=== PATIENT | male | born 1945 | race African-American/Black ===

== ENCOUNTER 2017-06-26 11:51 | Inpatient (IN) | payer MEDICARE, MEDICAID ==
--- NOTE | 2017-06-26 12:06 | ED Physician Chart ---
ED Chief Complaint/HPI - Patient Information Date Seen:: 06/26/17 Time Seen:: 11:50 Chief Complaint:: Failure to Thrive History of Present Illness:: onset x 3 days of failure to thrive and poor oral intake; no report of trauma, H /As, S/T, neck pain, C/P, SOB, Abd. Pain, A/N/V/D/C, fever, chills, or urinary s /s Allergies:: Allergies Allergy/AdvReac Type Severity Reaction Status Date / Time No Known Allergies Allergy Verified 06/26/17 11:55 Historian:: Patient, Family Member Review:: Nurse's Note Reviewed ED Review of Systems - Review of Systems General/Constitutional: No fever, No chills, No weight loss, No weakness, No diaphoresis, No edema, No loss of appetite Skin: No skin lesions, No rash, No bruising Head: No headache, No light-headedness Eyes: No loss of vision, No pain, No diplopia ENT: No earache, No nasal drainage, No sore throat, No tinnitus Neck: No neck pain, No swelling, No thyromegaly, No stiffness, No mass noted Cardio Vascular: No chest pain, No palpitations, No PND, No orthopnea, No edema Pulmonary: SOB, Cough, No sputum, Wheezing GI: No nausea, No vomiting, No diarrhea, No pain, No melena, No hematochezia, No constipation, No hematemesis G/U: No dysuria, No frequency, No hematuria, No nacturia Musculoskeletal: No bone or joint pain, No back pain, No muscle pain Endocrine: No polyuria, No polydipsia Psychiatric: No prior psych history, No depression, No anxiety, No suicidal ideation, No homicidal ideation, No auditory hallucination, No visual hallucination Hematopoietic: No bruising, No lymphadenopathy Allergic/Immuno: No urticaria, No angioedema Neurological: No syncope, No focal symptoms, No weakness, No paresthesia, No headache, No seizure, No dizziness, Confusion, No vertigo ED Past Medical History - Past Medical History Obtainable: Yes Past Medical History: HTN, Asthma/COPD, Arthritis, Dementia Family History: HTN Social History: Smoker, No Alcohol, No Drug Use, Single, Care Facility Surgical History: None Psychiatricy History: Dementia Medication: Reviewed Family Medical History - Family Member Mother History Unknown: Yes ED Physical Exam - Physical Examination General/Constitutional: Awake, Well-developed, well-nourished, Alert, No distress, GCS 15, Non-toxic appearing, Ambulatory Head: Atraumatic Eyes: Lids, conjuctiva normal, PERRL, EOMI Skin: Nl inspection, No rash, No skin lesions, No ecchymosis, Well hydrated, No lymphadenopathy ENMT: External ears, nose nl, TM canals nl, Nasal exam nl, Lips, teeth, gums nl , Oropharynx nl, Tonsils nl Neck: Nontender, Full ROM w/o pain, No JVD, No nuchal rigidity, No bruit, No mass, No stridor Respiratory: Nl effort/Exclusion, Clear to Auscultation, No Wheeze/Rhonchi/Rales Cardio Vascular: RRR, No murmur, gallop, rubs, NL S1 S2, Carotid/Femoral/Distal pulses equal bilaterally GI: No tenderness/rebounding/guarding, No organomegaly, No hernia, Normal BS's, Nondistended, No mass/bruits, No McBurney tenderness, Rectum exam nl : No CVA tenderness Extremities: No tenderness or effusion, Full ROM, normal strength in all extremities, No edema, Normal digits & nails Neuro/Psych: Alert/oriented, DTR's symmetric, Normal sensory exam, Normal motor strength, Judgement/insight normal, Mood normal, Normal gait, No focal deficits Misc: Normal back, No paraspinal tenderness ED Labs/Radiology/EKG Results - Lab Results Comments:: Na+: 134 - Radiology Results Comments:: NAD; COPD - EKG Interpretations EKG Time:: 12:06 Rate & Rhythm: 56; SB Comments:: LVH; non-specific st-t changes ED Septic Shock - . Is Septic Shock (SBP<90, OR Lactate>4 mmol\L) present?: No ED Reassessment (Disposition) - Reassessment Reassessment Condition:: Improved - Diagnosis Diagnosis:: Poor Oral Intake; Failure to Thrive; Hyponatremia; Dehydration; COPD - Aftercare/Follow up Instructions Aftercare/Follow-Up Instructions:: Counseled pt regarding lab results/diagnosis & need follow up, Counseled pt & family regarding lab results/diagnosis & need follow up - Patient Disposition Discharge/Transfer:: Acute Care w/in this hosp Accepting Physician:: Dr. Escobar Time Called:: 1300 Time Responded:: 13:00 Admitted to:: Med/Surg Spoke to:: Dr. Escobar Admitting Medical Physician:: Dr. Escobar Condition at Disposition:: Stable, Improved
[2017-06-26 12:38] LABS: HEMATOCRIT 45.1 % (41.0-60); HEMOGLOBIN 15.1 gm/dL (12-16); MEAN CORPUSCULAR HEMOGLOBIN 29.7 pg (27.0-31.0); MEAN CORPUSCULAR HGB CONC 33.4 pg (28.0-36.0); MEAN PLATELET VOLUME 8.3 fl; PLATELET COUNT 275 Th/cmm (150-400); RED BLOOD COUNT 5.07 Mil/cmm (3.80-5.80); RED CELL DISTRIBUTION WIDTH 15.1 % (11.5-20.0); WHITE BLOOD COUNT 5.2 Th/cmm (4.8-10.8)
[2017-06-26 12:46] LABS: INR 0.97 (0.5-1.4); PROTHROMBIN TIME (TEST) 10.1 SECONDS (9.5-11.5)
[2017-06-26 12:52] LABS: ALB/GLOB RATIO 1.2 (1.0-1.8); ALBUMIN 3.7 gm/dL (4.2-5.5); ALKALINE PHOSPHATASE 81 U/L (34-104); ANION GAP 10.9 (7.0-16.0); BILIRUBIN,TOTAL 0.7 mg/dL (0.3-1.0); BUN - UREA NITROGEN 15 mg/dL (7-25); CALCIUM SERUM 9.2 mg/dL (8.6-10.3); CARBON DIOXIDE 22.9 mEq/L (21.0-31.0); CHLORIDE 104 mEq/L (98-107); CREATININE - SERUM 0.7 mg/dL (0.7-1.3); CREATININE KINASE 95 U/L (30-223); GLUCOSE 96 mg/dL (70-105); POTASSIUM SERUM 3.8 mEq/L (3.5-5.1); SGOT 24 U/L (13-39); SGPT/ALT 21 U/L (7-52); SODIUM SERUM 134 mEq/L (136-145); TOTAL PROTEIN,SERUM 6.9 gm/dL (6.0-8.3)
--- NOTE | 2017-06-26 12:52 | Diagnostic Imaging Report ---
CHEST X-RAY: AP view INDICATION: pain COMPARISON: None FINDINGS: Chronic lung changes are seen with increased interstitial lung markings greatest within lung bases. Exam is limited due to patient rotation and probable scoliosis. There is no focal consolidation or pleural effusions The heart is normal in size. Atherosclerosis of the aortic arch is noted. Degenerative changes of the spine are noted. Old Left first rib fracture is noted. IMPRESSION: Chronic lung changes with increased interstitial lung markings greatest within the lung bases. These findings also likely chronic. There may be COPD. Please correlate with clinical findings. No focal consolidation identified. Atherosclerotic vascular disease.
[2017-06-26 12:53] LABS: TROP I 0.01 ng/mL (0.01-0.05)
[2017-06-26 12:56] LABS: % LYMPHOCYTES 44.1 % (20.0-50.0); % NEUTROPHILS 21.7 % (40.0-80.0)
[2017-06-26 12:57] LABS: % BASOPHILS 5.8 % (0.0-2.0); % EOSINOPHILS 22.8 % (0.0-5.0); % MONOCYTES 5.6 % (2.0-10.0); BASOPHILE ABSOLUTE 0.3 Th/cumm (0-0.2); EOSINOPHILE ABSOLUTE 1.2 Th/cmm (0.1-0.4); LYMPHOCYTE ABSOLUTE 2.3 Th/cmm (1.5-3.0); MONOCYTE ABSOLUTE 0.3 Th/cmm (0.3-1.0); NEUTROPHILE ABSOLUTE 1.1 Th/cmm (1.8-8.0)
[2017-06-26] MEDS ORDERED: cefTRIAXone 1 GM in Sodium Chloride 0.9% 50 ML IV ONE (19:30)
[2017-06-26] MEDS: methylPREDNISolone SS 40 mg Vial IVP SCH (21:14)
--- NOTE | 2017-06-26 22:24 | History & Physical ---
ADMIT DATE: 06/26/2017 HISTORY OF PRESENT ILLNESS: The patient apparently has been coming to my office, has been complaining of loss of weight, poor appetite, chest discomfort on and off, and patient failure to thrive and complaining of palpitation. The patient was admitted for a workup including rule out occult CA. The patient complains of no fever, no chills, no rigors. No nausea, vomiting, urticaria, but complains of decreased appetite and also complains of confusion and also he has lost a lot of weight and complains of palpitation. REVIEW OF SYSTEMS: Otherwise, negative. PHYSICAL EXAMINATION: GENERAL: Alert, oriented, elderly male, patient is confused. HEAD: Normal. ENT: Normal. LUNGS: Bilaterally clear. CARDIOVASCULAR SYSTEM: S1, S2 heard. ABDOMEN: Soft. Bowel sounds are heard. CENTRAL NERVOUS SYSTEM: Decreased sensorium and confusion. LABORATORY DATA: EKG showed a left ventricular hypertrophy. DIAGNOSES: Palpitation, history of rule out cardiac arrhythmia, hyponatremia, dehydration, COPD and acute renal insufficiency, acute kidney injury, COPD exacerbation, loss of weight, failure to thrive, rule out occult malignancy was made. The patient is being admitted and I will have the GI workup as well as cardiology workup and I will follow the patient. JOB# [id number]
[2017-06-26] MEDS ORDERED: Hydrocodone/APAP 10 mg/325 mg Tab PO PRN (22:41)
--- NOTE | 2017-06-27 00:18 | Consultation ---
DATE OF CONSULTATION: 06/26/[address] Escobar. Thank you very much Dr. Escobar for this consultation. HISTORY OF PRESENT ILLNESS: This is a 72-year-old male. He is not sure why he is admitted for; he is kind of a poor historian. Upon further questioning, he mentioned some shortness of breath and decreased appetite in addition to some pain in his back. PAST MEDICAL HISTORY: Significant for hypertension, COPD, dementia. SOCIAL HISTORY: Has been smoking a few cigarettes a day for many years. He used to smoke more before. REVIEW OF SYSTEMS: GENERAL: Some weakness, no fatigue. CARDIOVASCULAR: No chest pain or palpitation. RESPIRATORY: Shortness of breath, cough. GASTROINTESTINAL: No nausea or vomiting. PHYSICAL EXAMINATION: GENERAL: Awake, alert, not in acute distress. VITAL SIGNS: Temperature is 97.5, pulse 84, respirations 17, blood pressure 126/84, saturation 92-99%. HEENT: Atraumatic, normocephalic. Pupils react to light and accommodation. Ears, nose and throat normal. NECK: Supple. No JVD. CHEST: There are scattered rhonchi bilaterally. HEART: Regular rate and rhythm. ABDOMEN: Soft. EXTREMITIES: No edema. LABORATORY DATA: WBC is 5.2, hemoglobin 15.2, hematocrit 45.1, platelets is 275. Sodium is 134, potassium 3.8, BUN 15, creatinine 0.7. The chest x-ray, some chronic changes/COPD changes and maybe early infiltrate in right lower lobe area. IMPRESSION: 1. This is a 72-year-old male with acute chronic obstructive pulmonary disease exacerbation. 2. Acute bronchitis. 3. Early pneumonia. PLAN: 1. IV antibiotics. 2. Nebulizer treatment. 3. Low dose steroids. 4. Follow up chest x-ray. I will follow the patient with you. Thank you very much for this consultation. JOB# [id number]
[2017-06-27] MEDS: Albuterol Nebulizer 2.5mg/3mL HHN SCH ×4 (02:00→19:18)
[2017-06-27 05:30] LABS: % BASOPHILS 0.1 % (0.0-2.0); % EOSINOPHILS 0.9 % (0.0-5.0); HEMATOCRIT 46.1 % (41.0-60); HEMOGLOBIN 15.1 gm/dL (12-16); LYMPHOCYTE ABSOLUTE 1.1 Th/cmm (1.5-3.0); MEAN CELL VOLUME 90.2 fl (80-99); MEAN CORPUSCULAR HEMOGLOBIN 29.5 pg (27.0-31.0); MEAN CORPUSCULAR HGB CONC 32.7 pg (28.0-36.0); MEAN PLATELET VOLUME 8.9 fl; NEUTROPHILE ABSOLUTE 3.8 Th/cmm (1.8-8.0); PLATELET COUNT 293 Th/cmm (150-400); RED BLOOD COUNT 5.11 Mil/cmm (3.80-5.80); RED CELL DISTRIBUTION WIDTH 14.5 % (11.5-20.0); WHITE BLOOD COUNT 4.9 Th/cmm (4.8-10.8)
[2017-06-27] MEDS: methylPREDNISolone SS 40 mg Vial IVP SCH ×3 (05:47→20:53)
[2017-06-27 05:54] LABS: ALB/GLOB RATIO 1.1 (1.0-1.8); ALBUMIN 3.8 gm/dL (4.2-5.5); ALKALINE PHOSPHATASE 80 U/L (34-104); ANION GAP 9.9 (7.0-16.0); BILIRUBIN,TOTAL 0.6 mg/dL (0.3-1.0); BUN - UREA NITROGEN 17 mg/dL (7-25); CALCIUM SERUM 9.7 mg/dL (8.6-10.3); CARBON DIOXIDE 25.4 mEq/L (21.0-31.0); CHLORIDE 104 mEq/L (98-107); CHOLESTEROL 188 mg/dL (<200); CREATININE - SERUM 0.9 mg/dL (0.7-1.3); GLUCOSE 160 mg/dL (70-105); HDL -HIGH DENSITY LIPOPROTEIN 46 mg/dL (23-92); POTASSIUM SERUM 4.3 mEq/L (3.5-5.1); SGOT 20 U/L (13-39); SGPT/ALT 23 U/L (7-52); SODIUM SERUM 135 mEq/L (136-145); TOTAL PROTEIN,SERUM 7.2 gm/dL (6.0-8.3); TRIGLYCERIDES 74 mg/dL (<150)
[2017-06-27] MEDS ORDERED: VTE Chemical Prophylaxis Screen/Admission MC PRN (08:45)
[2017-06-27] MEDS ORDERED: Non-Formulary Item 1 EA (Albuterol Sulfate [Ventolin Hfa] 1 PUFF) IH PRN (09:06)
[2017-06-27] MEDS ORDERED: Hydrocodone/APAP 5mg/325mg Tab PO SCH (09:15)
--- NOTE | 2017-06-27 11:52 | Diagnostic Imaging Report ---
Abdominal ultrasound HISTORY: Pain The liver appears somewhat enlarged. In addition, there is an increase in parenchymal echogenicity. The findings may be associated with fatty infiltration and should be correlated with liver function tests. The exam of the gallbladder demonstrates a 4 mm intraluminal echogenic density with acoustic shadowing. Findings are consistent with a small gallstone. The pancreas cannot be seen due to bowel gas. The right kidney appears normal. The exam of the left kidney demonstrates a contour alteration along the lateral margin. No discrete lesion is outline. The finding is probably related to a normal "dromedary hump". No hydronephrosis. The spleen could not be visualized. No other definite retroperitoneal or intra-abdominal abnormalities. IMPRESSION: 1. Limited exam due to considerable bowel gas 2. Findings consistent with a relatively small gallstone. 3. Generous overall hepatic size with parenchymal changes that may be related to fatty infiltration. The findings should be correlated with liver function tests.
--- NOTE | 2017-06-27 14:33 | Diagnostic Imaging Report ---
Bilateral lower extremity Doppler arterial ultrasound exam HISTORY: Pain Sonographic sector images were obtained through the arterial systems of both legs. Associated Doppler data was obtained. The exam of the right leg demonstrates biphasic waveforms within the common femoral, superficial femoral, popliteal, anterior tibial, posterior tibial, dorsalis pedis arteries. Decrease in velocity noted within the dorsalis pedis artery region. Elevated velocity noted in the right popliteal region. The ankle-brachial index appears normal (1.0). Sonographic images demonstrate mild diffuse atherosclerotic changes. No significant focal narrowing or stenosis is seen. The left leg also demonstrates biphasic waveform throughout the arterial system. Decreased velocity noted within the dorsalis pedis artery region. Mild diffuse atherosclerotic changes noted. Ankle-brachial index is normal (1.0). No significant focal stenosis/narrowing seen. IMPRESSION: 1. Mild diffuse bilateral atherosclerotic changes. Findings are somewhat more pronounced within the dorsalis pedis artery regions. No significant stenosis identified.
--- NOTE | 2017-06-27 14:36 | Diagnostic Imaging Report ---
Bilateral carotid Doppler ultrasound exam HISTORY: Syncope Sonographic sector images were obtained through the carotid bifurcation regions bilaterally. Associated Doppler data was obtained. The exam demonstrates generalized intimal thickening throughout the bifurcation region. Focal abscess carotid plaque is noted in the carotid bulb region resulting in approximate 50% narrowing. Antegrade vertebral artery flow. The ICA/CCA flow ratio is in the upper most range of normal (1.9). The left side demonstrates generalized intimal thickening. Mild multifocal plaque is noted in the common carotid artery and carotid bulb region. No significant narrowing or stenosis. Antegrade vertebral artery flow. ICA/CCA flow ratios normal (1.0). IMPRESSION: 1. Evidence of moderate atherosclerotic plaque resulting in approximate 50% narrowing within the right carotid bulb region. 2. Mild multifocal atherosclerotic plaque on the left side.
--- NOTE | 2017-06-27 20:27 | Internal Medicine Prog Note ---
Internal Medicine Subjective - Subjective Service Date: 06/27/17 Patient seen and examined:: with staff Patient is:: awake, ambulating Per staff patient has:: tolerating meds Internal Medicine Objective - Results Result Diagrams: 06/27/17 04:40 06/27/17 04:40 Recent Labs: Laboratory Last Values WBC 4.9 Th/cmm (4.8-10.8) 06/27/17 04:40 RBC 5.11 Mil/cmm (3.80-5.80) 06/27/17 04:40 Hgb 15.1 gm/dL (12-16) 06/27/17 04:40 Hct 46.1 % (41.0-60) 06/27/17 04:40 MCV 90.2 fl (80-99) 06/27/17 04:40 MCH 29.5 pg (27.0-31.0) 06/27/17 04:40 MCHC Differential 32.7 pg (28.0-36.0) 06/27/17 04:40 RDW 14.5 % (11.5-20.0) 06/27/17 04:40 Plt Count 293 Th/cmm (150-400) 06/27/17 04:40 MPV 8.9 fl 06/27/17 04:40 Neutrophils % 75.0 % (40.0-80.0) 06/27/17 04:40 Lymphocytes % 23.0 % (20.0-50.0) 06/27/17 04:40 Monocytes % 1.0 % (2.0-10.0) L 06/27/17 04:40 Eosinophils % 0.9 % (0.0-5.0) 06/27/17 04:40 Basophils % 0.1 % (0.0-2.0) 06/27/17 04:40 PT 10.1 SECONDS (9.5-11.5) 06/26/17 12:25 INR 0.97 (0.5-1.4) 06/26/17 12:25 PTT (Actin FS) 26.9 SECONDS (26.0-38.0) 06/26/17 12:25 Sodium 135 mEq/L (136-145) L 06/27/17 04:40 Potassium 4.3 mEq/L (3.5-5.1) 06/27/17 04:40 Chloride 104 mEq/L (98-107) 06/27/17 04:40 Carbon Dioxide 25.4 mEq/L (21.0-31.0) 06/27/17 04:40 Anion Gap 9.9 (7.0-16.0) 06/27/17 04:40 BUN 17 mg/dL (7-25) 06/27/17 04:40 Creatinine 0.9 mg/dL (0.7-1.3) 06/27/17 04:40 Est GFR ( Amer) TNP 06/27/17 04:40 Est GFR (Non-Af Amer) TNP 06/27/17 04:40 BUN/Creatinine Ratio 18.9 06/27/17 04:40 Glucose 160 mg/dL (70-105) H 06/27/17 04:40 Whole Bld Lactic Acid 0.75 mmol/L (0.60-1.99) 06/26/17 12:25 Calcium 9.7 mg/dL (8.6-10.3) 06/27/17 04:40 Total Bilirubin 0.6 mg/dL (0.3-1.0) 06/27/17 04:40 AST 20 U/L (13-39) 06/27/17 04:40 ALT 23 U/L (7-52) 06/27/17 04:40 Alkaline Phosphatase 80 U/L (34-104) 06/27/17 04:40 Creatine Kinase 95 U/L (30-223) 06/26/17 12:25 Troponin I 0.01 ng/mL (0.01-0.05) 06/26/17 12:25 Total Protein 7.2 gm/dL (6.0-8.3) 06/27/17 04:40 Albumin 3.8 gm/dL (4.2-5.5) L 06/27/17 04:40 Globulin 3.4 gm/dL 06/27/17 04:40 Albumin/Globulin Ratio 1.1 (1.0-1.8) 06/27/17 04:40 Triglycerides 74 mg/dL (<150) 06/27/17 04:40 Cholesterol 188 mg/dL (<200) 06/27/17 04:40 LDL Cholesterol Direct 126 mg/dL (75-193) 06/27/17 04:40 HDL Cholesterol 46 mg/dL (23-92) 06/27/17 04:40 - Physical Exam Vitals and I&O: Vital Signs Temp 97.4 F 06/27/17 15:49 Pulse 56 06/27/17 19:20 Resp 20 06/27/17 19:20 BP 133/75 06/27/17 15:49 Pulse Ox 97 06/27/17 19:20 Intake & Output 06/27/17 06/27/17 06/28/17 06:59 18:59 06:59 Intake Total 650 Balance 650 Weight (lbs) 73.936 kg Intake: Oral 650 Other: # Voids 5 # Bowel Movements 1 Weight Source Bedscale Active Medications: Current Medications Acetaminophen/Hydrocodone Bitart ([place] 10 Mg/325 Mg) 1 tab PO Q4H PRN PRN Reason: Abdominal Pain Stop: 08/25/17 22:40 Albuterol Sulfate (Albuterol 2.5mg/3ml Neb Ud) 2.5 mg HHN Q6HRT [facility] Stop: 08/26/17 00:59 Last Admin: 06/27/17 19:18 Dose: 2.5 mg Ceftriaxone Sodium 1 gm/ (Sodium Chloride) 50 mls @ 100 mls/hr IV Q24HR [facility] Stop: 08/26/17 20:59 Methylprednisolone Sodium Succinate (Solu-Medrol) 20 mg IVP Q8HR [facility] Stop: 08/25/17 20:59 Last Admin: 06/27/17 14:35 Dose: 20 mg Metoprolol Tartrate (Lopressor) 25 mg PO DAILY [facility] Stop: 08/26/17 08:59 Last Admin: 06/27/17 09:45 Dose: 25 mg Miscellaneous (Vte Chemical Prophylaxis Screen/ Admission) 1 ea [facility] PRN PRN PRN Reason: PROTOCOL Stop: 08/26/17 08:44 General: alert HEENT: NC/AT, PERRLA Neck: Supple Lungs: CTAB Cardiovascular: RRR Neurological: alert Internal Medicine Assmt/Plan - Assessment Assessment: palpitation hyponatremia dehydration copd acute renal insufficiency loss of weight copd exacerbation - Plan Plan: iv fluid to hydrate patient cpm
[2017-06-27] MEDS ORDERED: cefTRIAXone 1 GM in 0.9% NS 50 ML IV SCH (21:00)
[2017-06-28] MEDS: Albuterol Nebulizer 2.5mg/3mL HHN SCH ×3 (00:29→13:40)
[2017-06-28 03:35] LABS: CHOLESTEROL 203 mg/dL (<200); HDL -HIGH DENSITY LIPOPROTEIN 49 mg/dL (23-92); TRIGLYCERIDES 97 mg/dL (<150)
--- NOTE | 2017-06-28 04:22 | Consultation ---
DATE OF CONSULTATION: 06/27/2017 HISTORY OF PRESENT ILLNESS: This 72-year-old male was seen and examined at the courtesy of Dr. Escobar. Apparently, the patient was admitted here with history of chest discomfort off and on, palpitations, loss of appetite, loss of weight, failure to thrive, history of COPD, the patient has been confused also, hypertension. There is no history of diabetes. The patient is not a very good historian, does not give proper history. Information obtained from the chart. On direct questioning, the patient denies any history of chest pains. No history of shortness of breath. No history of PND. No history of orthopnea. No history of swelling over the legs. No history of intermittent claudication. No history of phlebitis. No history of abdominal pain. No history of dizziness. No history of syncope. No history of seizures. PAST MEDICAL HISTORY: Not much available from the patient. FAMILY HISTORY: Not much available from the patient. SOCIAL HISTORY: Not much available from the patient. PHYSICAL EXAMINATION: VITAL SIGNS: Heart rate was 105, blood pressure was 165/76, respirations 20, temperature 98.7. SKIN: Normal. HEAD: Normocephalic. EYES: Conjunctivae were pink. There is no icterus in the eyes. Pupils equally reactive to light. NECK: There was no increased jugular venous distention, no thyromegaly, no lymphadenopathy. Carotids equal both sides. CHEST: Bilaterally symmetrical. Moved well with respiration. Respiratory movements equal both sides. Trachea is central. Resonant to percussion. Breath sound, scattered rhonchi. CARDIOVASCULAR SYSTEM: PMI not well localized and no pulsation or thrill. No parasternal heave. S1 normal. S2 physiologic. There were no S3, no rub. ABDOMEN: Soft, no tenderness, no rigidity, no guarding or organomegaly. Bowel sounds normal. EXTREMITIES: There was no calf tenderness. Peripheral pulses diminished. LABORATORY AND DIAGNOSTIC DATA: EKG showed sinus rhythm, possible LVH, ST-T changes are due to LVH or ischemia. Sodium was 134, potassium 3.8, chloride 104, CO2 22.9, BUN 15, creatinine 0.7, glucose 96. Lactic acid 0.75. First troponin was 0.01. WBC of 5.2, hemoglobin 15.1, hematocrit 45.1, platelet count 275. PT/INR was 0.97, PTT is 26.9. Chest x-ray showed chronic lung changes with increased interstitial lung markings, greatest in the lung bases. These findings may also likely be chronic and maybe COPD. Please correlate clinically. Arteriosclerotic vascular disease. Echocardiogram was done that revealed some type of left ventricular hypokinesis with ejection fraction being low around 30-35%. Aortic wall area was 2.95. Mild left atrial enlargement. Mild right atrial enlargement. IMPRESSION: History of chest discomfort, rule out myocardial infarction palpitations, hypertension, left ventricular systolic dysfunction, ejection fraction being 30-35%, mild left atrial and right atrial enlargement, COPD, history of confusion, loss of weight. Suggested to continue cardiac monitoring. We will get serial troponin levels q.8 x 3. Also get repeat EKG. We also get BNP, lipid profile, and TSH. In the meantime, the patient is on Lopressor. We will change Lopressor to Coreg 6.25 b.i.d., add lisinopril 5 mg daily, also add aspirin 81 and Lipitor 20 mg daily. Further recommendation will be made depending on the rest of tests available. The patient should be treated intensively with beta yudelka, ARBs, and diuretics if needed with the potassium supplement and nitrates if needed. Also, coronary artery should be ruled out and after this medical therapy, if there is no improvement in the ejection fraction, then consider AICD. JOB# [id number]
[2017-06-28] MEDS: methylPREDNISolone SS 40 mg Vial IVP SCH ×2 (05:25→12:58)
[2017-06-28] MEDS ORDERED: Atorvastatin Calcium 10 MG TAB PO SCH (09:00)
[2017-06-28] MEDS ORDERED: Aspirin 81mg Chewable Tab PO SCH (09:00)
[2017-06-28] MEDS ORDERED: Probiotic Screen MC PRN (11:41)
--- NOTE | 2017-06-28 14:23 | General Progress Note ---
Subjective - Review of Systems Events since last encounter: awake in no distress Objective - Results Result Diagrams: 06/27/17 04:40 06/27/17 04:40 Recent Labs: Laboratory Last Values WBC 4.9 Th/cmm (4.8-10.8) 06/27/17 04:40 RBC 5.11 Mil/cmm (3.80-5.80) 06/27/17 04:40 Hgb 15.1 gm/dL (12-16) 06/27/17 04:40 Hct 46.1 % (41.0-60) 06/27/17 04:40 MCV 90.2 fl (80-99) 06/27/17 04:40 MCH 29.5 pg (27.0-31.0) 06/27/17 04:40 MCHC Differential 32.7 pg (28.0-36.0) 06/27/17 04:40 RDW 14.5 % (11.5-20.0) 06/27/17 04:40 Plt Count 293 Th/cmm (150-400) 06/27/17 04:40 MPV 8.9 fl 06/27/17 04:40 Neutrophils % 75.0 % (40.0-80.0) 06/27/17 04:40 Lymphocytes % 23.0 % (20.0-50.0) 06/27/17 04:40 Monocytes % 1.0 % (2.0-10.0) L 06/27/17 04:40 Eosinophils % 0.9 % (0.0-5.0) 06/27/17 04:40 Basophils % 0.1 % (0.0-2.0) 06/27/17 04:40 PT 10.1 SECONDS (9.5-11.5) 06/26/17 12:25 INR 0.97 (0.5-1.4) 06/26/17 12:25 PTT (Actin FS) 26.9 SECONDS (26.0-38.0) 06/26/17 12:25 Sodium 135 mEq/L (136-145) L 06/27/17 04:40 Potassium 4.3 mEq/L (3.5-5.1) 06/27/17 04:40 Chloride 104 mEq/L (98-107) 06/27/17 04:40 Carbon Dioxide 25.4 mEq/L (21.0-31.0) 06/27/17 04:40 Anion Gap 9.9 (7.0-16.0) 06/27/17 04:40 BUN 17 mg/dL (7-25) 06/27/17 04:40 Creatinine 0.9 mg/dL (0.7-1.3) 06/27/17 04:40 Est GFR ( Amer) TNP 06/27/17 04:40 Est GFR (Non-Af Amer) TNP 06/27/17 04:40 BUN/Creatinine Ratio 18.9 06/27/17 04:40 Glucose 160 mg/dL (70-105) H 06/27/17 04:40 Whole Bld Lactic Acid 0.75 mmol/L (0.60-1.99) 06/26/17 12:25 Calcium 9.7 mg/dL (8.6-10.3) 06/27/17 04:40 Total Bilirubin 0.6 mg/dL (0.3-1.0) 06/27/17 04:40 AST 20 U/L (13-39) 06/27/17 04:40 ALT 23 U/L (7-52) 06/27/17 04:40 Alkaline Phosphatase 80 U/L (34-104) 06/27/17 04:40 Creatine Kinase 95 U/L (30-223) 06/26/17 12:25 Troponin I 0.01 ng/mL (0.01-0.05) 06/28/17 10:45 B-Natriuretic Peptide 81.4 pg/mL (5.0-100.0) 06/28/17 02:30 Total Protein 7.2 gm/dL (6.0-8.3) 06/27/17 04:40 Albumin 3.8 gm/dL (4.2-5.5) L 06/27/17 04:40 Globulin 3.4 gm/dL 06/27/17 04:40 Albumin/Globulin Ratio 1.1 (1.0-1.8) 06/27/17 04:40 Triglycerides 97 mg/dL (<150) 06/28/17 02:30 Cholesterol 203 mg/dL (<200) H 06/28/17 02:30 LDL Cholesterol Direct 141 mg/dL (75-193) 06/28/17 02:30 HDL Cholesterol 49 mg/dL (23-92) 06/28/17 02:30 TSH 0.32 uIU/ml (0.34-5.60) L 06/28/17 02:30 - Physical Exam Vitals and I&O: Vital Signs Temp 98.2 F 06/28/17 12:00 Pulse 57 06/28/17 13:42 Resp 20 06/28/17 13:42 BP 121/74 06/28/17 12:00 Pulse Ox 96 06/28/17 13:42 Intake & Output 06/27/17 06/28/17 06/28/17 18:59 06:59 18:59 Intake Total 650 Output Total 600 Balance 650 -600 Weight (lbs) 73.936 kg 73.936 kg Intake: Oral 650 Output: Urine 600 Other: # Voids 5 # Bowel Movements 1 0 Weight Source Bedscale Bedscale Active Medications: Current Medications Acetaminophen/Hydrocodone Bitart ([place] 10 Mg/325 Mg) 1 tab PO Q4H PRN PRN Reason: Abdominal Pain Stop: 08/25/17 22:40 Albuterol Sulfate (Albuterol 2.5mg/3ml Neb Ud) 2.5 mg HHN Q6HRT [facility] Stop: 08/26/17 00:59 Last Admin: 06/28/17 13:40 Dose: 2.5 mg Aspirin (Aspirin Chewable) 81 mg PO DAILY [facility] Stop: 08/27/17 08:59 Last Admin: 06/28/17 08:20 Dose: 81 mg Atorvastatin Calcium (Lipitor) 20 mg PO DAILY [facility] PRN Reason: Protocol Stop: 08/27/17 08:59 Last Admin: 06/28/17 08:21 Dose: 20 mg Carvedilol (Coreg) 6.25 mg PO BID [facility] Stop: 08/27/17 08:59 Last Admin: 06/28/17 08:20 Dose: 6.25 mg Ceftriaxone Sodium 1 gm/ (Sodium Chloride) 50 mls @ 100 mls/hr IV Q24HR [facility] Stop: 08/26/17 20:59 Last Admin: 06/27/17 20:53 Dose: 100 mls/hr Lisinopril (Zestril) 5 mg PO DAILY [facility] Stop: 08/27/17 08:59 Last Admin: 06/28/17 08:20 Dose: 5 mg Methylprednisolone Sodium Succinate (Solu-Medrol) 20 mg IVP Q8HR [facility] Stop: 08/25/17 20:59 Last Admin: 06/28/17 12:58 Dose: 20 mg Miscellaneous (Vte Chemical Prophylaxis Screen/ Admission) 1 ea [facility] PRN PRN PRN Reason: PROTOCOL Stop: 08/26/17 08:44 Miscellaneous (Probiotic Screen) 1 ea MC PRN PRN PRN Reason: PROTOCOL Stop: 08/27/17 11:40 Assessment/Plan - Problem List Patient Problems: All Active Problems FREQUENT FALLS WITH DIZZINESS AND COUGH (Acute) - Assessment Assessment: palpitation hyponatremia dehydration copd acute renal insufficiency loss of weight copd exacerbation - Plan Plan: iv fluid to hydrate patient cpm
[2017-06-29 08:11] LABS: T4 FREE 1.26 ng/dL (0.82-1.77)
--- NOTE | 2017-07-05 13:05 | Cardiology ---
06/27/2017 ECHOCARDIOGRAM REPORT The patient of Dr. Escobar. M-MODE ECHOCARDIOGRAM: Mitral valve, anterior leaflet of mitral valve shows increased thickness, decreased excursion. Interventricular septum shows increased thickness, decreased excursion, ejection fraction 30%. Left atrium normal. Aortic root shows normal dimension, normal excursion of aortic leaflets. CONCLUSION: Minimal hypertrophy of the left ventricle, ejection fraction 30%. 2D ECHO ON THE SAME PATIENT: Long axis view shows enlarged left ventricular cavity with decreased ejection fraction, minimal hypertrophy of the left ventricle, left atrium normal. Aortic root shows normal dimension, normal excursion of aortic leaflets. Short axis view of mitral valve normal. Short axis view of aortic valve normal. Apical four chamber view shows minimal hypertrophy of the left ventricle, ejection fraction 30%. Left atrium normal. Right ventricular cavity, right atrium normal, no pericardial effusion. CONCLUSION: Cardiomyopathy, ejection fraction 30%. Doppler study shows normal antegrade flow across the mitral valve, tricuspid valve, aortic valve. JOB# [id number]
== END 2017-06-28 16:44 | disposition home or self-care (01) | DRG 682 ==
LOC: ER 11:51 → MSI 14:20 → TELE 16:36
PROVIDERS: ADMIT Internal Medicine; ATTEND Internal Medicine
DX: N17.9 Acute kidney failure, unspecified (principal); J18.9 Pneumonia, unspecified organism; J44.0 Chronic obstructive pulmonary disease with (acute) lower respiratory infection; J44.1 Chronic obstructive pulmonary disease with (acute) exacerbation; E87.1 Hypo-osmolality and hyponatremia; I49.9 Cardiac arrhythmia, unspecified; E86.0 Dehydration; R62.7 Adult failure to thrive; J20.9 Acute bronchitis, unspecified; I11.9 Hypertensive heart disease without heart failure; F03.90 Unspecified dementia, unspecified severity, without behavioral disturbance, psychotic disturbance, mood disturbance, and anxiety; F17.210 Nicotine dependence, cigarettes, uncomplicated; R63.4 Abnormal weight loss; Z68.20 Body mass index [BMI] 20.0-20.9, adult; Z82.49 Family history of ischemic heart disease and other diseases of the circulatory system
CPT/HCPCS: 36415-UA; 71045-TC; 76700-TC; 80053-TC; 80061-TC; 82550-TC; 83605; 83880-TC; 84153-90; 84439-90; 84443-TC; 84479-90; 84484-TC; 85007-TC; 85025-TC; 85027-TC; 85610-TC; 85730-TC; 93005; 93880-TC; 93925-TC; 94760; J0696; J2920; J7613; Z7610